=== PATIENT | female | born 1970 | race Caucasian/White ===

== ENCOUNTER 2020-01-25 05:28 | Day surgery (SDC) | payer MEDICAID ==
[~2020-01-25] VITALS: Ht 157.5 cm; Wt 116.1 kg
[2020-01-25 07:07] LABS: BASOPHILS % 0.9 % (0.0-2.0); EOSINOPHILS % 9.1 % (0.0-5.0); HEMATOCRIT. 38.9 % (36.0-48.0); HEMOGLOBIN. 12.8 g/dL (12.0-16.0); LYMPHOCYTES % 15.8 % (20.0-50.0); MEAN CORPUSCULAR HEMOGLOBIN 27.7 pg (28.0-32.0); MEAN PLATELET VOLUME 9.3 fl (7.4-10.4); NEUTROPHILS % 67.2 % (40.0-76.0); PLATELET 307 x1000/uL (130-400); RED BLOOD CELL COUNT 4.63 mill/uL (4.2-5.4)
[2020-01-25 07:13] LABS: CHLORIDE 107 mEq/L (98-107)
[2020-01-25 07:15] LABS: PARTIAL THROMBOPLASTIN TIME 33.3 sec (23.4-31.0); PROTHROMBIN TIME 10.7 sec (9.6-11.0)
[2020-01-25 07:48] LABS: HCG SCREEN NEGATIVE
[2020-01-25] MEDS ORDERED: LOSA100T32 MT (09:11)
[2020-01-25] MEDS ORDERED: AMLO5TAB88 MT (09:11)
[2020-01-25] MEDS ORDERED: HYDR25TA MT (09:11)
[2020-01-25] MEDS ORDERED: LACTATED RINGERS 1,000 ML IV SCH (09:30)
[2020-01-25] MEDS ORDERED: PROPOFOL 200MG/20ML VIAL IV ONE (10:20)
[2020-01-25] MEDS ORDERED: GLYCOPYRROLATE 0.2 MG/ML 2ML VIAL ONE (10:20)
[2020-01-25] MEDS ORDERED: MIDAZOLAM HCL 2 MG/2 ML VIAL ONE (10:20)
[2020-01-25] MEDS ORDERED: LIDOCAINE HCL/PF 1% 10 MG/ML 5ML VIAL ONE (10:20)
[2020-01-25] MEDS ORDERED: FENTANYL CITRATE/PF 50MCG/ML 2ML VIAL ONE (10:20)
[2020-01-25] MEDS ORDERED: ONDANSETRON HCL 4MG/2ML INJ ONE (10:21)
[2020-01-25] MEDS ORDERED: METOCLOPRAMIDE HCL 10MG/2ML VIAL ONE (10:21)
[2020-01-25] MEDS ORDERED: SUCCINYLCHOLINE CHLORIDE 200MG/10ML IV ONE (10:21)
[2020-01-25] MEDS ORDERED: SODIUM CHLORIDE 0.9% 1,000 ML IV ONE (10:57)
[2020-01-25] MEDS ORDERED: HYDROMORPHONE HCL/PF 2MG/ML CPJ IV PRN (11:00)
[2020-01-25] MEDS ORDERED: ONDANSETRON HCL 4MG/2ML INJ IV PRN (11:00)
[2020-01-25] MEDS ORDERED: MORPHINE SULFATE 2 MG/ML CPJ (NOT FOR IM USE) IV PRN (11:00)
[2020-01-25] MEDS ORDERED: MEPERIDINE HCL/PF 25MG/ML CPJ IV PRN ×2 (11:00)
== END 2020-01-25 13:00 | disposition home or self-care (01) ==
LOC: OR 05:28
PROVIDERS: ATTEND Obstetrics & Gynecology
DX: N95.0 Postmenopausal bleeding (principal); C54.1 Malignant neoplasm of endometrium; I10 Essential (primary) hypertension; E66.01 Morbid (severe) obesity due to excess calories; Z68.42 Body mass index [BMI] 45.0-49.9, adult; Z79.899 Other long term (current) drug therapy
CPT/HCPCS: 36415; 58558; 80053; 84703; 85025; 85610; 85730; 86850; 86900; 86901; 88305; 93005; J0330; J2250; J2405; J2704; J2765; J3010; J3490